=== PATIENT | male | born 1960 | race Two or more races ===

== ENCOUNTER 2017-10-08 21:28 | Emergency (ER) | payer BC ==
[~2017-10-08] VITALS: Ht 172.7 cm; Wt 80.7 kg
[2017-10-08] MEDS ORDERED: Norco 5mg/325mg tab ORAL ONE (22:00)
[2017-10-08] MEDS ORDERED: HYDROCODON-ACE1 EA15 ORAL (22:51)
--- NOTE | 2017-10-08 22:52 | Emergency Room Report ---
History of Present Illness General Chief Complaint: Multiple Trauma/Fall Source: Patient Present Illness HPI This is a 56-year-old male who is right-hand dominant. He presents with chief complaint of left wrist and hand injury. He was playing basketball tonight and fell striking his hand on the pavement. Complaining of pain to the wrist and hand. Pain is 9 out of 10. Worse with movement. There's swelling. No loss of consciousness. No elbow pain. No other injury. Allergies: Coded Allergies: No Known Allergies (Unverified , 10/08/17) Patient History Past Medical History: see triage record, old chart reviewed Past Surgical History: other Pertinent Family History: none Social History: Denies: smoking Immunizations: other Reviewed Nursing Documentation: PMH: Agreed, PSxH: Agreed Nursing Documentation-PMH Past Medical History: No Stated History Review of Systems Eye: Denies: eye pain, blurred vision ENT: Denies: ear pain, nose congestion, throat swelling Respiratory: Denies: cough, shortness of breath Cardiovascular: Denies: chest pain, palpitations Gastrointestinal: Denies: abdominal pain, diarrhea, nausea, vomiting Musculoskeletal: Reports: joint pain, joint swelling, Denies: back pain Skin: Denies: rash Neurological: Denies: headache, numbness Endocrine: Denies: increased thirst, increased urine Hematologic/Lymphatic: Denies: easy bruising All Other Systems: negative except mentioned in HPI Physical Exam Vital Signs Date Time Temp Pulse Resp B/P (MAP) Pulse Ox O2 Delivery O2 Flow Rate FiO2 10/08/17 21:49 98.4 94 16 155/85 100 Room Air 98.4 vitals with high blood pressure Sp02 EP Interpretation: reviewed, normal General Appearance: well appearing, no apparent distress, alert Head: normocephalic, atraumatic Eyes: bilateral eye PERRL, bilateral eye EOMI ENT: hearing grossly normal, normal pharynx Neck: full range of motion, supple, no meningismus Respiratory: chest non-tender, lungs clear, normal breath sounds Cardiovascular #1: regular rate, rhythm, no murmur Gastrointestinal: normal bowel sounds, non tender, no mass, no organomegaly, no bruit, non-distended Musculoskeletal: back normal, gait/station normal, other - Left wrist: There is tenderness and mild deformity to the distal radius. Radial pulse 2+. There is also tenderness to the dorsum of the third and fourth carpal bone. Psychiatric: mood/affect normal Skin: warm/dry Procedures Splinting Splinting : Consent: Verbal Location: left forearm Splint: sugar-tong Pre-Proc Neuro Vasc Exam: normal Post-Proc Neuro Vasc Exam: normal Patient Tolerated: Well Complications: None Medical Decision Making Diagnostic Impression: Primary Impression: Distal radius fracture, left Qualified Codes: S52.572A - Other intraarticular fracture of lower end of left radius, initial encounter for closed fracture Additional Impressions: Fracture, metacarpal shaft Qualified Codes: S62.323A - Displaced fracture of shaft of third metacarpal bone, left hand, initial encounter for closed fracture Fracture of fourth metacarpal bone of left hand Qualified Codes: S62.325A - Displaced fracture of shaft of fourth metacarpal bone, left hand, initial encounter for closed fracture ER Course Patient presents with a fall and has a metacarpal bone and also has a radius fracture. No dislocation. We'll discharge home with referral for orthopedic doctor. Other X-Ray Diagnostic Results Other X-Ray Diagnostic Results : X-Ray ordered: x-rays left wrist # of Views/Limited Vs Complete: 3 View Indication: Pain EP Interpretation: Yes Interpretation: no dislocation Impression: Other - distal radius, third and fourth metacarpal bone frx Electronically Signed by: Kushal Lopez MD Last Vital Signs Date Time Temp Pulse Resp B/P (MAP) Pulse Ox O2 Delivery O2 Flow Rate FiO2 10/08/17 22:18 98.4 10/08/17 21:49 94 16 155/85 100 Room Air Status: improved Disposition: HOME, SELF-CARE Condition: Stable Scripts Hydrocodone/Acetaminophen 5-325* (HYDROCODONE/ACETAMINOPHEN 5-325*) 1 Each Tablet 1 TAB ORAL Q6H Y for For Pain, #30 TAB 0 Refills Prov: KUSHAL LOPEZ M.D. 10/08/17 Additional Instructions: Follow-up your doctor in 7 days. You may need a referral to see orthopedic Dr. He can call the orthopedic DrRicki on-call for the ER. Return if worse. KUSHAL LOPEZ M.D. Oct 08, 2017 22:51
[2017-10-08 23:15] VITALS: BP 145/85
[2017-10-08 23:16] VITALS: BP 145/85
--- NOTE | 2017-10-09 10:58 | Diagnostic Imaging Report ---
Clinical Indication:Pain, trauma Technique: 3 views of the left wrist Comparison: None Findings: There is a transverse fracture of the distal radius. This is slightly impacted, otherwise nondisplaced. There are also spiral fractures of the third and fourth metacarpals. No evidence of carpal fracture. No associated ulnar fracture. The joint spaces are preserved Impression: Positive for fracture of the distal radius Positive for third and fourth metacarpal fractures. This agrees with the preliminary interpretation provided by the emergency room physician
== END 2017-10-08 23:50 | disposition home or self-care (01) ==
LOC: EMR 22:46
DX: S52.572A Other intraarticular fracture of lower end of left radius, initial encounter for closed fracture (principal); S62.323A Displaced fracture of shaft of third metacarpal bone, left hand, initial encounter for closed fracture; S62.325A Displaced fracture of shaft of fourth metacarpal bone, left hand, initial encounter for closed fracture; W18.30XA Fall on same level, unspecified, initial encounter; Y93.67 Activity, basketball; Y92.9 Unspecified place or not applicable
CPT/HCPCS: 29125; 99283

== ENCOUNTER 2017-10-10 21:32 | Emergency (ER) | payer BC ==
[~2017-10-10] VITALS: Ht 172.7 cm; Wt 80.7 kg
[~2017-10-10 21:32] MED LIST: HYDROCODON-ACE1 EA15 ORAL
[2017-10-10 22:20] VITALS: BP 144/92
[2017-10-10 22:43] VITALS: BP 144/92
--- NOTE | 2017-10-11 01:13 | Emergency Room Report ---
History of Present Illness General Chief Complaint: Cast Check Source: Patient Present Illness HPI Patient is a 56-year-old male who presented after increased pain to his left hand. Patient prior history of wrist fracture as well as metacarpal fractures. He had been placed in a cast. Seen his orthopedic doctor Dr. Ariza who had partially open the cast. The patient noticed some improvement. Here presented with an persistent pain. He denies any fever or discharge. The patient noticed some discoloration to his fingertips. This was described as a bruising. Allergies: Coded Allergies: No Known Allergies (Unverified , 10/10/17) Patient History Past Medical History: see triage record Reviewed Nursing Documentation: PMH: Agreed, PSxH: Agreed Nursing Documentation-PMH Past Medical History: No Stated History Review of Systems All Other Systems: negative except mentioned in HPI Physical Exam Vital Signs Date Time Temp Pulse Resp B/P (MAP) Pulse Ox O2 Delivery O2 Flow Rate FiO2 10/10/17 21:49 98.1 85 16 144/92 96 98.1 General Appearance: well appearing, no apparent distress, alert, GCS 15 Head: normocephalic, atraumatic ENT: hearing grossly normal, normal voice Neck: full range of motion, supple Respiratory: no respiratory distress, speaking full sentences Cardiovascular #1: normal inspection Gastrointestinal: normal inspection, normal bowel sounds, non tender, soft Musculoskeletal: no calf tenderness, swelling Neurologic: normal gait Psychiatric: mood/affect normal Skin: no rash Medical Decision Making Diagnostic Impression: Primary Impression: Encounter for cast check ER Course Patient presented for increased left hand pain. Differential diagnosis included but was not limited to fracture pain, compartment syndrome among others. Patient has a benign exam and does not appear to require any further imaging or laboratory testing at this time. Cast was loosened by tech. of the cast does not appear to be tight after loosening. The patient was noted to have adequate circulation. The patient is advised to follow up with primary care doctor in 1-2 days. Patient is advised to return if any worsening condition or if any changes in status that are concerning. This report is dictated with [employer] effervescent salts compounder software which may occasionally lead to discrepancies related to use of this software. Last Vital Signs Date Time Temp Pulse Resp B/P (MAP) Pulse Ox O2 Delivery O2 Flow Rate FiO2 10/10/17 22:43 98.1 85 16 144/92 96 98.1 Status: improved Disposition: HOME, SELF-CARE Condition: Stable Patient Instructions: Cast or Splint Care Niko Mendieta Oct 11, 2017 01:13
== END 2017-10-10 22:43 | disposition home or self-care (01) ==
LOC: EMR 22:22
DX: M79.642 Pain in left hand (principal); S62.102D Fracture of unspecified carpal bone, left wrist, subsequent encounter for fracture with routine healing
CPT/HCPCS: 99282

== ENCOUNTER 2019-10-16 13:07 | Outpatient (CLI) | payer BC ==
--- NOTE | 2019-10-16 14:22 | Diagnostic Imaging Report ---
Indication: Dyspnea Comparison: None 2 views of the chest obtained. Findings: Cardiomediastinal silhouette and pulmonary vascularity are within normal limits for age. The diaphragmatic contour is smooth and costophrenic angles are sharp. No pleural effusions are identified. The bones are osteopenic. Vertebral endplate spurs noted.. Impression: No acute disease
== END 2019-10-16 15:07 | disposition home or self-care (01) ==
LOC: RAD 13:07
DX: R06.00 Dyspnea, unspecified (principal); M85.80 Other specified disorders of bone density and structure, unspecified site
CPT/HCPCS: 71046